=== PATIENT | male | born 1960 | race Caucasian/White ===

== ENCOUNTER 2020-08-02 02:31 | Emergency (ER) | payer MEDICARE ==
[~2020-08-02 02:31] MED LIST: DECADRON6 MG PO; OMNICEF 300 MG300 MG PO; VENTOLIN HFA 66.7 GM INH
[2020-08-02 02:57] LABS: HEMOGLOBIN 13.5 gm/dl (14.0-17.5); RED BLOOD COUNT 4.4 M/UL (4.20-5.50); WHITE BLOOD COUNT 6.7 K/UL (4.5-11.0)
[2020-08-02 03:25] LABS: BUN/CREATININE RATIO 17 (0-10)
== END 2020-08-02 12:24 | disposition home or self-care (01) ==
LOC: ER1 02:31
PROVIDERS: Emergency Medicine
DX: T46.1X1A Poisoning by calcium-channel blockers, accidental (unintentional), initial encounter (principal); T46.4X1A Poisoning by angiotensin-converting-enzyme inhibitors, accidental (unintentional), initial encounter; T44.7X1A Poisoning by beta-adrenoreceptor antagonists, accidental (unintentional), initial encounter; T46.6X1A Poisoning by antihyperlipidemic and antiarteriosclerotic drugs, accidental (unintentional), initial encounter; T50.4X1A Poisoning by drugs affecting uric acid metabolism, accidental (unintentional), initial encounter; T39.391A Poisoning by other nonsteroidal anti-inflammatory drugs [NSAID], accidental (unintentional), initial encounter; I49.3 Ventricular premature depolarization; I10 Essential (primary) hypertension; Z88.1 Allergy status to other antibiotic agents; Z95.0 Presence of cardiac pacemaker
CPT/HCPCS: 80053; 82550; 82553; 83735; 83874; 84100; 84484; 85025; 93005; 99284